=== PATIENT | male | born 1965 | race Two or more races ===

== ENCOUNTER 2018-10-07 13:58 | Emergency (ER) | payer OTHER ==
[~2018-10-07] VITALS: Ht 170.2 cm; Wt 65.3 kg
--- NOTE | 2018-10-07 14:00 | NUR ---
TO ER BED 14, CONNECTED TO THE MONITOR, AWAITING MD MURRAY
--- NOTE | 2018-10-07 15:00 | NUR ---
AND SON AT BEDSIDE
--- NOTE | 2018-10-07 17:57 | NUR ---
DR FLEMING AT BEDSIDE FOR RE-EVAL, SPOKE WITH FAMILIES AT BEDSIDE
--- NOTE | 2018-10-07 18:58 | NUR ---
MOTHER:RUDY [phone]
--- NOTE | 2018-10-07 21:30 | NUR ---
FAMILY IS ON THE WAY TO DOG POUND ATTENDANT PATIENT.
[2018-10-07 22:27] VITALS: BP 112/86
== END 2018-10-07 22:28 | disposition home or self-care (01) ==
LOC: ER 14:01
DX: F10.129 Alcohol abuse with intoxication, unspecified (principal); T51.91XA Toxic effect of unspecified alcohol, accidental (unintentional), initial encounter; Y92.89 Other specified places as the place of occurrence of the external cause; Y90.8 Blood alcohol level of 240 mg/100 ml or more
CPT/HCPCS: 36415; 70450-TC; G0480